=== PATIENT | female | born 1935 | race Two or more races ===

== ENCOUNTER 2017-12-03 09:35 | Outpatient (CLI) | payer OTHER | END 2017-12-03 10:30 | disposition home or self-care (01) | LOC: NUCLEAR 09:35 | DX: M85.88 Other specified disorders of bone density and structure, other site (principal); Z12.11 Encounter for screening for malignant neoplasm of colon ==

== ENCOUNTER 2017-12-26 11:05 | Outpatient (CLI) | payer OTHER | END 2017-12-26 11:15 | disposition home or self-care (01) | LOC: LAB 11:05 | DX: N18.3 Chronic kidney disease, stage 3 (moderate) (principal); E11.21 Type 2 diabetes mellitus with diabetic nephropathy; D63.1 Anemia in chronic kidney disease; N30.00 Acute cystitis without hematuria; E03.8 Other specified hypothyroidism ==

== ENCOUNTER 2021-05-20 13:23 | Emergency (ER) | payer OTHER ==
[~2021-05-20] VITALS: Ht 162.6 cm; Wt 54.4 kg
[2021-05-20] MEDS ORDERED: ATORVASTATIN CA40 MG PO (13:39)
[2021-05-20] MEDS ORDERED: HYDRALAZINE HCL25 MG PO (13:39)
[2021-05-20] MEDS ORDERED: IRBESARTAN75 MG PO (13:39)
[2021-05-20] MEDS ORDERED: AMLODIPINE BESY10 MG PO (13:39)
[2021-05-20] MEDS ORDERED: DONEPEZIL HCL10 MG PO (13:39)
[2021-05-20] MEDS ORDERED: HYDRALAZINE HCL50 MG PO (13:39)
[2021-05-20] MEDS ORDERED: GLIPIZIDE10 MG PO (13:39)
[2021-05-20] MEDS ORDERED: CARVEDILOL6.25 M1 PO (13:39)
[2021-05-20] MEDS ORDERED: ST. JOSEPH ASPI81 M2 PO (13:43)
== END 2021-05-20 16:34 | disposition home or self-care (01) ==
LOC: ER 13:23
DX: S33.5XXA Sprain of ligaments of lumbar spine, initial encounter (principal); M54.5 Low back pain; W01.0XXA Fall on same level from slipping, tripping and stumbling without subsequent striking against object, initial encounter; Y93.01 Activity, walking, marching and hiking; Y92.018 Other place in single-family (private) house as the place of occurrence of the external cause; Y99.8 Other external cause status